=== PATIENT | male | born 1960 | race Caucasian/White ===

== ENCOUNTER 2023-03-25 14:39 | Emergency (ER) | payer BC ==
[~2023-03-25] VITALS: Ht 182.9 cm; Wt 127.1 kg
[2023-03-25 15:38] LABS: BASOPHILS % (AUTO) 0.4 % (0-1); EOSINOPHILS # (AUTO) 0.1 X10'3 (0-0.9); EOSINOPHILS % (AUTO) 1.4 % (0-6); HEMATOCRIT 43.6 % (42.0-52.0); HEMOGLOBIN 14.9 g/dl (14.0-17.9); LYMPHOCYTES % (AUTO) 24.3 % (21-51); MEAN CORPUSCULAR HEMOGLOBIN 28.3 PG (27.0-31.0); MEAN CORPUSCULAR HGB CONC 34.1 g/dL (33.0-36.5); MEAN CORPUSCULAR VOLUME 82.8 FL (78-98); MEAN PLATELET VOLUME 9.2 FL (7.4-10.4); MONOCYTES # (AUTO) 0.7 X10'3 (0-0.9); MONOCYTES % (AUTO) 8.7 % (2-12); NEUTROPHILS # (AUTO) 5.3 X10'3 (1.8-7.7); NEUTROPHILS % (AUTO) 65.2 % (42-75); PLATELET COUNT 149 X10'3 (140-440); RED BLOOD COUNT 5.26 X10'6 (4.70-6.10); RED CELL DISTRIBUTION WIDTH 14.4 % (11.5-14.5); WHITE BLOOD COUNT 8.2 X10'3 (4.5-11.0)
[2023-03-25 15:53] LABS: ALANINE AMINOTRANSFERASE 68 U/L (12-78); ALBUMIN 3.9 G/DL (3.4-5.0); ALBUMIN/GLOBULIN RATIO 1.3 (1.1-1.5); ALKALINE PHOSPHATASE 62 IU/L (46-116); ANION GAP 6 (8-16); ASPARTATE AMINO TRANSFERASE 34 U/L (10-37); BILIRUBIN,TOTAL 0.4 MG/DL (0.1-1.0); BLOOD UREA NITROGEN 18 MG/DL (7-18); BUN/CREATININE RATIO 20.7 (10.0-20.0); CALCIUM 9.1 MG/DL (8.5-10.1); CHLORIDE 103 MMOL/L (99-107); CREATININE 0.87 MG/DL (0.60-1.10); GLUCOSE 138 MG/DL (70-104); POTASSIUM 3.1 MMOL/L (3.5-5.1); SODIUM 144 MMOL/L (135-145); TOTAL CARBON DIOXIDE 34.7 MMOL/L (24-32); eCRCL 99 ML/MIN; eGFR 90 ML/MIN
[2023-03-25 16:02] VITALS: BP 141/98; PULSE 82; TEMP 97.7; O2SAT 95
[2023-03-25 16:03] LABS: FREE T4 (FREE THYROXINE) 0.79 NG/DL (0.73-1.40); PRO BRAIN NATRIURETIC PEPTIDE < 30 PG/ML (0-125); THYROID STIMULATING HORMONE 0.82 ulU/ml (0.34-4.50)
[2023-03-25 16:05] VITALS: RESP 16
== END 2023-03-25 16:27 | disposition home or self-care (01) ==
LOC: ER 14:40
DX: I10 Essential (primary) hypertension (principal)
CPT/HCPCS: 36415; 70450; 80053; 83880; 84439; 84443; 84484; 85025; 93005; 99284